=== PATIENT | male | born 1950 | race Caucasian/White ===

== ENCOUNTER 2017-09-10 10:30 | Emergency (ER) | payer MEDICARE, BC ==
[~2017-09-10] VITALS: Ht 175.3 cm; Wt 72.7 kg
[2017-09-10 10:32] VITALS: TEMP 97
[2017-09-10 12:05] LABS: BASO % 0.1 % (0.0-2.0); EOS % 0.1 % (0-4.0); GRAN # 5.3 (1.4-6.5); GRAN % 72.6 % (42.2-75.2); LYMPH # 1.4 (1.2-3.4); MEAN CELL VOLUME 86 fl (80.0-100.0); MEAN CORPUSCULAR HEMOGLOBIN 30 pg (27.0-31.0); MEAN CORPUSCULAR HGB CONC 35 g/dl (33.0-37.0); MEAN PLATELET VOLUME 8.9 fl (7.4-10.4); MONO # 0.5 (0.1-0.6); PLATELET COUNT 287 K/mm3 (130-400); RED BLOOD COUNT 5.37 M/mm3 (4.20-5.60); REDCELL DISTRIBUTION WIDTH-CV 11.9 % (11.5-14.5)
[2017-09-10 12:16] LABS: ALANINE AMINOTRANSFERASE 47 U/L (21-72); ALBUMIN 5.2 gm/dL (3.5-5.0); ALKALINE PHOSPHATASE 86 U/L (50-136); ANION GAP 12 mmol/L (7-16); AST,SGOT 34 U/L (15-37); BLOOD UREA NITROGEN 12 mg/dL (9-20); CALCIUM 9.6 mg/dL (8.4-10.2); CARBON DIOXIDE 25 mmol/L (22-30); CHLORIDE 97 mmol/L (98-107); CREATININE, serum 0.73 mg/dL (0.66-1.25); GLUCOSE 102 mg/dL (74-106); LIPASE 76 U/L (23-300); POTASSIUM 4.4 mmol/L (3.4-5.0); SODIUM 134 mmol/L (137-145); TOTAL PROTEIN 8.2 gm/dL (6.4-8.2)
[2017-09-10 12:17] LABS: C-REACTIVE PROTEIN < 0.5 mg/dL (0.0-0.9)
[2017-09-10 12:30] LABS: TROPONIN-I < 0.012 ng/mL (0.000-0.034)
[2017-09-10] MEDS ORDERED: ZOFRAN ODT4 MG PO (14:05)
[2017-09-10 15:06] VITALS: BP 125/76; PULSE 94
== END 2017-09-10 16:10 | disposition home or self-care (01) ==
LOC: COL.ER 10:30
PROVIDERS: Emergency Medicine
DX: J06.9 Acute upper respiratory infection, unspecified (principal); R11.10 Vomiting, unspecified
CPT/HCPCS: J2405; J7030; J7120

== ENCOUNTER 2019-09-12 07:53 | Emergency (ER) | payer MEDICARE, BC ==
[~2019-09-12] VITALS: Ht 175.3 cm; Wt 75.0 kg
[~2019-09-12 07:53] MED LIST: ZOFRAN ODT4 MG PO
[2019-09-12 08:07] VITALS: TEMP 97.4
[2019-09-12] MEDS ORDERED: LIPITOR20 MG PO (08:13)
[2019-09-12] MEDS ORDERED: MICARDIS40 MG PO (08:13)
[2019-09-12] MEDS ORDERED: SINGULAIR 110 MG/TAB PO (08:14)
[2019-09-12] MEDS ORDERED: ZOFRAN 4MG T4 MG/TAB PO (08:14)
[2019-09-12 08:19] LABS: BASO % 0.6 % (0.0-2.0); EOS # 0.1 (0.0-0.7); EOS % 0.7 % (0-4.0); GRAN # 4.3 (1.4-6.5); GRAN % 63.5 % (42.2-75.2); HEMATOCRIT 45.1 % (42.0-52.0); HEMOGLOBIN 15.4 g/dl (13.5-18.0); LYMPH # 1.8 (1.2-3.4); LYMPH % 26.1 % (20.0-51.0); MEAN CELL VOLUME 86 fl (80.0-100.0); MEAN CORPUSCULAR HEMOGLOBIN 30 pg (27.0-31.0); MEAN CORPUSCULAR HGB CONC 34 g/dl (33.0-37.0); MEAN PLATELET VOLUME 8.8 fl (7.4-10.4); MONO # 0.6 (0.1-0.6); MONO % 8.8 % (1.7-9.3); PLATELET COUNT 219 K/mm3 (130-400); RED BLOOD COUNT 5.22 M/mm3 (4.20-5.60); REDCELL DISTRIBUTION WIDTH-CV 11.9 % (11.5-14.5)
[2019-09-12 08:25] LABS: PROTHROMBIN TIME 11.9 SECONDS (9.7-12.8)
[2019-09-12 08:27] LABS: PARTIAL THROMBOPLASTIN TIME 32.3 SECONDS (26.0-37.0)
[2019-09-12 08:30] LABS: ALANINE AMINOTRANSFERASE 26 U/L (21-72); ALBUMIN 4.7 gm/dL (3.5-5.0); ALKALINE PHOSPHATASE 66 U/L (50-136); ANION GAP 9 mmol/L (7-16); AST,SGOT 27 U/L (15-37); BILIRUBIN,TOTAL 1.2 mg/dL (0.0-1.0); BLOOD UREA NITROGEN 11 mg/dL (9-20); CALCIUM 9.5 mg/dL (8.4-10.2); CARBON DIOXIDE 29 mmol/L (22-30); CHLORIDE 96 mmol/L (98-107); CREATININE, serum 0.88 (0.66-1.25); GLUCOSE 103 mg/dL (74-106); POTASSIUM 3.9 mmol/L (3.4-5.0); SODIUM 135 mmol/L (137-145); TOTAL PROTEIN 7.4 gm/dL (6.4-8.2)
[2019-09-12 08:42] LABS: TROPONIN-I < 0.012 ng/mL (0.000-0.035)
[2019-09-12] MEDS ORDERED: BONINE25 MG PO (10:41)
[2019-09-12 10:45] VITALS: BP 140/92; PULSE 62
== END 2019-09-12 10:54 | disposition home or self-care (01) ==
LOC: COL.ER 07:53
PROVIDERS: Family Medicine
DX: H83.02 Labyrinthitis, left ear (principal); I10 Essential (primary) hypertension
CPT/HCPCS: J2405; J7030

== ENCOUNTER → 2020-12-04 | Outpatient (CLI) | payer MEDICARE, BC ==
[~2020-12-04] MED LIST changes: +ADVIL200 MG PO; +AMOXICILLIN 8751 TAB PO; +BONINE25 MG PO; +COLACE 100100 MG/CAP PO; +FLONASEALLERGY NS; +LIPITOR20 MG PO; +MICARDIS40 MG PO; +ONE-A-DAY ESSE1 EACH PO; +PYRIDIUM 100MG100 MG PO; +SENEXON-S 50-81 EACH PO; +SINGULAIR 110 MG/TAB PO; +VTAMINC250TA PO; +ZOFRAN 4MG T4 MG/TAB PO; +ZOFRAN8 MG PO
== END ==
LOC: COL.RAD 10:32
DX: K76.89 Other specified diseases of liver (principal); R31.9 Hematuria, unspecified; Z90.79 Acquired absence of other genital organ(s)
CPT/HCPCS: Q9967

== ENCOUNTER 2020-12-15 12:52 | Day surgery (SDC) | payer MEDICARE, BC ==
[~2020-12-15] VITALS: Ht 175.3 cm; Wt 77.0 kg
[2020-12-15] VITALS (11 sets, daily range): BP systolic 127–149; BP diastolic 68–90; PULSE 63–86; TEMP 97.9
[~2020-12-15 12:52] MED LIST changes: -ADVIL200 MG PO; -AMOXICILLIN 8751 TAB PO; -COLACE 100100 MG/CAP PO; -FLONASEALLERGY NS; -ONE-A-DAY ESSE1 EACH PO; -PYRIDIUM 100MG100 MG PO; -SENEXON-S 50-81 EACH PO; -VTAMINC250TA PO; -ZOFRAN8 MG PO
[2020-12-15] MEDS ORDERED: ADVIL200 MG PO (14:28)
[2020-12-15] MEDS ORDERED: FLONASEALLERGY NS (14:28)
--- NOTE | 2020-12-15 18:59 | NUR ---
Patient received post op. Patient CBI continues at a moderate/fast rate. Output bloody, no clot seen. Patient uncomfortable, but not wanting to take any medication at this time. He did eat dinner, but then became nauseated after he ate. Vss on room air. Scds ble. Ivf per orders. Bedside report to night nurse
--- NOTE | 2020-12-15 19:30 | NUR ---
Resting quietly, CBI ongoing with red bloody urine to bag, VS stable, denies need for pain medication at this time, family at bedside, Updated on plan of care.
--- NOTE | 2020-12-15 20:19 | NUR ---
CBI ongoing, patient c/o bladder pain, Call placed to Dr. Spear substation technician- will come up to see patient, updated patient and family, VS stable.
--- NOTE | 2020-12-15 20:32 | NUR ---
Dr. Spear at bedside- irrigated solis- clots noted, free flowing at this time, NON:D51/2NS @100ml/hr per Dr. Spear, patient tolerated well, updated on plan of care, NPO at this time per Dr. Spear
--- NOTE | 2020-12-15 22:00 | NUR ---
Call placed to Dr. Spear updated on patient- continues with dark red output with clots, Dr. Spear states that he will take him back to surgery for cytoscopy, evacuation of clots and full duration, [facility] House sup, Charge nurse and spouse and patient on plan of care.
[2020-12-16] VITALS (12 sets, daily range): BP systolic 98–127; BP diastolic 60–73; PULSE 65–90; TEMP 97.6–98.4
--- NOTE | 2020-12-16 00:26 | NUR ---
Returned to room, awake, alert, oriented x 4, respirations even and unlabored, VS started at this time, CBI ongoing with clear output to gravity, patient states he feels much better, at bedside, no further c/o at this time.
--- NOTE | 2020-12-16 09:46 | NUR ---
Patient sitting up in chair. His at bedside. He tolerated breakfast. Cbi at a slow rate, pink tinged output. Patient reports slight discomfort at solis insertion. Patient denies yet passing flatus. Colace per orders. Will monitor.
[2020-12-16] MEDS ORDERED: PYRIDIUM 100MG100 MG PO (11:03)
--- NOTE | 2020-12-16 11:45 | NUR ---
Plan is to return home with Juliaan [phone]. Met with patient in room with . Patient reports that they reside in [place]. 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 Patient reports that his PCP is Dr. Voss. RX obtained at [facility] without Difficulty. Other specialist Dr. Demarco. Patient reports indl Action: Educated on services and supports. Declines any services. No concerns identified. NF
--- NOTE | 2020-12-16 14:48 | NUR ---
Patient assisted back to bed. He sat up in chair for lunch and did well. Cbi continues to flow at a very slow rate. pink tinged output. denies pain. remains at bedside. Will monitor.
--- NOTE | 2020-12-16 18:14 | NUR ---
Patient sitting up in chair. Visiting with and daughter. Dinner ordered. Cbi very slow drip. Pale pink output. Will report off to nightnurse
--- NOTE | 2020-12-16 20:02 | NUR ---
Awake, alert, oriented x 4, family at bedside, CBI continues w/o issue, patient w/o complaint at this time, updated on plan of care.
[2020-12-17 00:10] VITALS: BP 120/64; PULSE 67; TEMP 97.6
[2020-12-17 04:00] VITALS: BP 106/61; PULSE 66; TEMP 97.7
[2020-12-17 07:15] VITALS: BP 135/78; PULSE 58; TEMP 97.7
--- NOTE | 2020-12-17 07:31 | NUR ---
Patient primed & pulled this am. Tolerated procedure well. He has voided twice without difficutly. Patient showering. Breakfast ordering. Hopeful for discharge hometoday.
[2020-12-17 11:21] VITALS: BP 119/72; PULSE 72; TEMP 98.2
--- NOTE | 2020-12-17 14:10 | NUR ---
Patient ready for discharge. Dr. Spear rounded. Orders obtained. Patient successfully completed 6 bottle routine without troubles. Patient picked up script for pyridum. All discharge education given. Home med list reviewed. Instucted patient to continues to check his BP at home prior to taking medication. Activity & diet restrictions reviewed. Patient to called to make follow up appt for stent removal friday & knows to call with any questions or concerns. Patient ambulated out with all belongings. His to take him home
== END 2020-12-17 15:10 | disposition home or self-care (01) ==
LOC: SDCO 12:52 → SURG 16:51 → SDCO 12-17 15:10
DX: C67.9 Malignant neoplasm of bladder, unspecified (principal); N13.5 Crossing vessel and stricture of ureter without hydronephrosis; N99.89 Other postprocedural complications and disorders of genitourinary system; R31.0 Gross hematuria; N32.89 Other specified disorders of bladder; I10 Essential (primary) hypertension; E78.5 Hyperlipidemia, unspecified; E78.00 Pure hypercholesterolemia, unspecified; Z90.79 Acquired absence of other genital organ(s); Z79.899 Other long term (current) drug therapy; Z80.42 Family history of malignant neoplasm of prostate; Z80.59 Family history of malignant neoplasm of other urinary tract organ
CPT/HCPCS: OP; C1769; C2617; J0330; J0690; J1100; J1885; J2270; J2405; J2704; J3010; J3480; J7120; Q9967

== ENCOUNTER 2021-01-19 06:19 | Day surgery (SDC) | payer MEDICARE, BC ==
[~2021-01-19] VITALS: Ht 175.3 cm; Wt 75.7 kg
[2021-01-19] VITALS (11 sets, daily range): BP systolic 123–149; BP diastolic 77–88; PULSE 60–79; TEMP 97.3–98.2
[~2021-01-19 06:19] MED LIST changes: +ADVIL200 MG PO; +FLONASEALLERGY NS; +PYRIDIUM 100MG100 MG PO
[2021-01-19] MEDS ORDERED: COLACE 100100 MG/CAP PO (09:03)
--- NOTE | 2021-01-19 10:25 | NUR ---
PATIENT ADMITED INTO ROOM 349 POST OP. A&O. VSS. DENIES PAIN OR NAUSEA. CBI INFUSING AT MOD RATE. BAEZ TO DD WITH CLEAR YELLOW URINE NOTED. IV FLUIDS INFUSING INTO RIGHT WRIST IV. LIQUIDS AT BEDSIDE. HEAD TO TOE ASSESSMENT COMPLETE. ORIENTED TO ROOM. CALL LIGHT IN REACH. FAMILY AT BEDSIDE.
--- NOTE | 2021-01-19 13:11 | NUR ---
Pt. is comfortable and not hungry so will wait;wanting just ice water for now.
--- NOTE | 2021-01-19 21:00 | NUR ---
PT IN BED, HAS CBI AT MODERATE RATE AND URINE IS PEACH COLORED WITHOUT CLOTS. IS ALERT AND ORIENTED X4. DENIES PAIN. TAKES HS MED WITHOUT PROBLEM.
[2021-01-20 00:40] VITALS: BP 117/81; PULSE 73; TEMP 98.1
[2021-01-20 04:44] VITALS: BP 136/79; PULSE 65; TEMP 97.8
--- NOTE | 2021-01-20 06:00 | NUR ---
URINE REMAINS PEACH COLORED, NO CLOTS. CBI AT SLOW RATE.
[2021-01-20 08:00] VITALS: BP 144/88; PULSE 63; TEMP 97.9
[2021-01-20 12:00] VITALS: BP 142/89; PULSE 66; TEMP 98
--- NOTE | 2021-01-20 15:00 | NUR ---
PATIENT HAS COMPLETED HIS 6 CUP. URINE IS PEACH COLORED AND WITHOUT CLOTS. PATIENT DISCHARGING HOME VIA AMBULATORY WITH TO PERSONAL VEHICLE. GAVE DISCHARGE INSTRUCTIONS AND DISCUSSED F/U APT. ANSWERED QUESTIONS/CONCERNS. DC'D RIGHT WRIST IV, COVERED SITE WITH GAUZE & TAPE. PATIENT IS DRESSED, PACKED AND DISCHARGED.
== END 2021-01-20 15:00 | disposition home or self-care (01) ==
LOC: SDCO 06:19 → SURG 10:25 → SDCO 12:30
DX: C67.0 Malignant neoplasm of trigone of bladder (principal); Z20.822 Contact with and (suspected) exposure to COVID-19; I10 Essential (primary) hypertension; E78.00 Pure hypercholesterolemia, unspecified; Z85.46 Personal history of malignant neoplasm of prostate; Z79.899 Other long term (current) drug therapy; Z87.891 Personal history of nicotine dependence
CPT/HCPCS: OP; C1769; C2617; J0690; J1100; J2405; J2704; J3010; J7120

== ENCOUNTER 2021-02-10 08:44 | Observation (INO) | payer MEDICARE, BC ==
[2021-02-10] VITALS (12 sets, daily range): BP systolic 106–158; BP diastolic 47–884; PULSE 62–95; TEMP 97.5–98.8
[~2021-02-10 08:44] MED LIST changes: +COLACE 100100 MG/CAP PO
--- NOTE | 2021-02-10 10:13 | NUR ---
Patient admitted to the surgical floor for CBI. Upon initial assessment normal S1 and S2 sound present, radial and pedal pulses +2 bilaterally, lungs clear to auscultation, bowel sounds present in all four quadrants, patient A&O. Patient C/O discomfort in their lower abdomen. 22 gauge IV started in patient's left AC. Patient denies any further pain, discomfort, or needs at this time. Will continue to monitor. Call light in reach.
--- NOTE | 2021-02-10 10:17 | NUR ---
Admission paperwork complete. Med rec, allergies, and pharmacy updated.
--- NOTE | 2021-02-10 14:17 | NUR ---
Patient taken down for procedure.
--- NOTE | 2021-02-10 18:10 | NUR ---
Patient has had an ok day. CBI placed by Beatris. [address] in [address]. Patient has had clear liquid coming out of solis since his arrival to the floor, no clots present. Solis clamped. VSS. Patient tolerating food and drink, diet advanced to a regular diet. Patient denies any pain, discomfort, or needs at time. at the bedside. Will continue to monitor. Call light in reach.
--- NOTE | 2021-02-10 21:00 | NUR ---
PT IN BED. CBI CLAMPED AND URINE IS CLEAR YELLOW. SL TO LEFT AC FLUSHES WELL. DENIES PAIN. BAEZ CARES COMPLETE.
[2021-02-11 03:15] VITALS: BP 137/79; PULSE 63; TEMP 97.9
--- NOTE | 2021-02-11 04:51 | NUR ---
PT AWAKE, EMPTIED BAEZ FOR 2200CC, CBI HAS BEEN CLAMPED THIS SHIFT, REMAMINS CLEAR YELLOW.
[2021-02-11 07:59] VITALS: BP 143/87; PULSE 69; TEMP 98
--- NOTE | 2021-02-11 08:00 | NUR ---
PATIENT IS A&O. VSS. DENIES PAIN. IN EARLY THIS AM, SEE ORDERS. BAEZ TO DD WITH MOD AMOUNTS OF CLEAR YELLOW URINE. P&P CATH, INSTILLED 30CC OF CBI FLUID AND PULLED BAEZ. PATIENT TOLERATED WELL. STARTED 6 CUP ROUTINE. URINAL AT BEDSIDE. HEAD TO TOE ASSESSMENT COMPLETE. AM MEDS GIVEN. NO C/O N/V. LEFT AC IV TO INT. BREAKFAST TRAY AT BEDSIDE. NO OTHER NEEDS. CALL LIGHT IN REACH. NOW AT BEDSIDE.
--- NOTE | 2021-02-11 09:35 | NUR ---
PATIENT WAS ABLE TO VOID 150CC OF CLEAR YELLOW URINE FOR HIS FIRST VOID POST BAEZ REMOVAL.
--- NOTE | 2021-02-11 09:54 | NUR ---
ELLEN completed intake with patient. Patient provides that he lives in [place] with spouse Juliana [phone]. Patient states that he does not utilize DME and is independent with ADLs, and does not utilize any home health services at this time. Patient states that his PCP is Dr. Hennessy, pharmacy is [facility], and is able to afford his medications. patient states that his is his DPOA-HC and present at time of intake and states that she will bring in a copy as soon as she can. Patient states that his DC plan is to return to his home up on [place]. SW will continue to follow. DC plan: Home with spouse
[2021-02-11 11:40] VITALS: BP 157/80; PULSE 62; TEMP 97.8
--- NOTE | 2021-02-11 14:00 | NUR ---
PATIENT HAS COMPLETED HIS 6 CUP ROUTINE AND IS READY TO DISCHARGE HOME. GAVE DISCHARGE INSTRUCTIONS & DISCUSSED F/U APT. DC'D LEFT AC IV, COVERED WITH GAUZE & COBAN. PATIENT IS DRESSED, PACKED AND DISCHARGED.
== END 2021-02-11 14:00 | disposition home or self-care (01) ==
LOC: SURG 08:44
PROVIDERS: ADMIT Urology
DX: C67.4 Malignant neoplasm of posterior wall of bladder (principal); R31.0 Gross hematuria; N32.9 Bladder disorder, unspecified; E78.00 Pure hypercholesterolemia, unspecified; E78.5 Hyperlipidemia, unspecified; I10 Essential (primary) hypertension; Z85.46 Personal history of malignant neoplasm of prostate; Z79.899 Other long term (current) drug therapy
CPT/HCPCS: G0378; G0379; J0690; J1100; J2405; J2704; J3010

== ENCOUNTER 2021-05-22 14:03 | Observation (INO) | payer MEDICARE, BC ==
[~2021-05-22] VITALS: Ht 175.3 cm; Wt 77.0 kg
[2021-05-22 14:47] VITALS: BP 128/86; PULSE 75; TEMP 97.5
[2021-05-22] MEDS ORDERED: SENEXON-S 50-81 EACH PO (15:29)
[2021-05-22] MEDS ORDERED: ZOFRAN 4MG T4 MG/TAB PO (15:29)
[2021-05-22] MEDS ORDERED: ONE-A-DAY ESSE1 EACH PO (15:30)
[2021-05-22] MEDS ORDERED: VTAMINC250TA PO (15:31)
[2021-05-22] MEDS ORDERED: PYRIDIUM 100MG100 MG PO (18:20)
[2021-05-22 20:44] VITALS: BP 143/92; PULSE 86; TEMP 97.8
[2021-05-22 21:44] VITALS: BP 138/86; PULSE 82
[2021-05-23] VITALS (7 sets, daily range): BP systolic 122–134; BP diastolic 67–77; PULSE 71–98; TEMP 98–98.8
--- NOTE | 2021-05-23 00:41 | NUR ---
2100- TO FLOOR FROM POST OP W CBI RUNNING MED/HIGH FLOW. NO CLOTS CLEAR URINE. FAMILY AT BEDSIDE. POC DISCUSSED. TOLERATING FLUIDS NOW. IV FLUIDS PER ORDER. SCD FOR VTE. POST OP VITALS CYCLING. CALL LIGHT WI REACH.
[2021-05-23 06:38] LABS: HEMATOCRIT 38.7 % (42.0-52.0); MEAN CELL VOLUME 86 fl (80.0-100.0); MEAN CORPUSCULAR HEMOGLOBIN 29 pg (27.0-31.0); MEAN CORPUSCULAR HGB CONC 34 g/dl (33.0-37.0); PLATELET COUNT 226 K/mm3 (130-400); RED BLOOD COUNT 4.51 M/mm3 (4.20-5.60); REDCELL DISTRIBUTION WIDTH-CV 12.9 % (11.5-14.5)
[2021-05-23 07:05] LABS: CALCIUM 8.7 mg/dL (8.4-10.2); CREATININE, serum 0.8 mg/dL (0.72-1.25); POTASSIUM 4.3 mmol/L (3.5-4.5)
--- NOTE | 2021-05-23 08:45 | NUR ---
Pt doing well this morning. He does not have much of an appetite, only wanting liquids at this time. He is tolerating liquids with no complaints of N/V. Pt is aware of the plan for the day as far as the mitomycin and having the solis catheter removed. All questions answered
--- NOTE | 2021-05-23 10:55 | NUR ---
Mitomycin recieved from the pharmacy and verified correct with Kandy Hauser RN by comparing computer order with printed label. Pt teaching has beend one and printed information provided. CBI clamped. Bladder drained of clear urine with very slight pink tint. Delaney catheter clamped and secured, port prepped with alcohol and mitomycin instilled into bladder with no discomfort reported. Chux has been placed under pt and appropriate PPE and observation of chemotherapy precautions was followed. Signage is in place and precautions have been reviewed.
--- NOTE | 2021-05-23 11:20 | NUR ---
Pt is on his back right now and is tolerating the clamped solis well at this time. Family is at bedside and is supportive.
--- NOTE | 2021-05-23 11:45 | NUR ---
Roc, RN has been caring for pt during mitomycin. Pt currently doing well, no needs or complaints
--- NOTE | 2021-05-23 12:04 | NUR ---
Mitomycin was instilled at 1045 and at 1145 pt states he is done and requests that his bladder be drained. Rosa urine was noted with a brighter red color for the last 50 ml but no clots. CBI was restarted briefly. Solis catheter balloon was drained and solis was gently and easily removed. Pericare provided and stat lock was removed as well all following chemotherapy PPE precautions. Approximately 300ml of urine was drained and disposed of into yellow container along with PPE waste. Report to Kandy Hauser RN who is his primary nurse. Lunch has been ordered.
--- NOTE | 2021-05-23 15:53 | NUR ---
ELLEN met with patient and his , Juliana, at bedside to discuss discharge plan. Juliana's contact # is [phone]. Patient and reside in [place] where patient reports he is fully independent with no DME's or home oxygen needs. Patient states his PCP is Dr. Boaz Hennessy and he gets his medications from [facility] with no difficulty. Patient has a completed MPOA and it is on file. SW will continue to follow for any discharge needs. *D/C Plan: Home with
--- NOTE | 2021-05-23 15:56 | NUR ---
Pt has had complaints of his stomach hurting, thought it was gas, but pains are getting worse after walking and passing some gas. PRN nausea medication given. Pt reports feeling bloated and is concerned that he is not voiding much. Notified Dr Gerardo
[2021-05-24] VITALS (7 sets, daily range): BP systolic 108–131; BP diastolic 58–75; PULSE 77–92; TEMP 98.1–98.7
--- NOTE | 2021-05-24 00:30 | NUR ---
PT HAS CONTINUED TO HAVE ABDOMINAL PAIN ET NAUSEA THROUGHOUT NIGHT. REFUSED PO MEDICATIONS R/T FEAR OF VOMITTING, HAS BEEN DRINKING WATER WITH NO PROBLEMS. BOWEL SOUNDS ARE ACTIVE. URINE IS RED TINGED BUT NO CLOTS SEEN. NEW TELEPHONE ORDER RECEIVED FROM DR. PAUL TO INSERT [address] BAEZ CATHETER. BAEZ CATHETER HAS BEEN INSERTED @ THIS TIME, IMMEDIATE URINE RETURN WAS RED TINGED WITH VISIBLE MODERATE SIZED CLOTS. PT IS RESTING IN BED. RESPIRATIONS UNLABORED, CALL LIGHT WITHIN REACH. WILL CONTINUE TO MONITOR.
--- NOTE | 2021-05-24 03:42 | NUR ---
PT IS RESTING IN BED. REQUESTS NAUSEA MEDICATION. PT STATES THAT NAUSEA ET PAIN HAS IMPROVED FROM EARLIER. URINE IN TUBING IS NOW LIGHT PEACH WITH NO CLOTS SEEN. BAG IS EMPTIED OF 800 ML. SMALL AMOUNT OF MEDIUM SIZED CLOTS ARE ALSO EMPTIED FROM BAG. PT'S WATER IS REFILLED, DENIES OTHER NEEDS @ THIS TIME. CALL LIGHT WITHIN REACH.
[2021-05-24] MEDS ORDERED: AMOXICILLIN 8751 TAB PO (06:13)
[2021-05-24] MEDS ORDERED: ZOFRAN8 MG PO (06:13)
--- NOTE | 2021-05-24 10:12 | NUR ---
PT HAS SOME NAUSEA, ADMINISTERED SOME ZOFRAN PER MAR. PT WOULD LIKE TO ADJUST TO ZOFRAN ODT FOR HOME MANAGEMENT. WILL CONTACT PROVIDER.
--- NOTE | 2021-05-24 13:14 | NUR ---
First visit from the engine cleaner. No needs right now.
--- NOTE | 2021-05-24 20:00 | NUR ---
PT IN BED. DENIES NAUSEA. HAS GOOD URINE OUTPUT FROM BAEZ, NO CBI. BAEZ CARES PROVIDED AT THIS TIME.
[2021-05-25 03:24] VITALS: BP 109/73; PULSE 83; TEMP 98.1
--- NOTE | 2021-05-25 05:00 | NUR ---
Has denied nausea this shift. Delaney with good urine output.
[2021-05-25 07:16] VITALS: BP 107/74; PULSE 85; TEMP 98.1
--- NOTE | 2021-05-25 10:21 | NUR ---
Pt resting in bed at this time with some complaints of nausea. PRN given. Pts is present in the room. Discussed catheter care for at home. Will continue to go over until he goes home. Pt was able to eat some breakfast and walk around in the room prior to him getting nauseated. Pt is okay going home knowing that a script for yvrose was called in. No other needs at this time
--- NOTE | 2021-05-25 10:22 | NUR ---
Heart sounds regular, lungs clear to ausculation, bowels hyperactive x4, solis dependent to drainage. Medication administered for nausea. Patient ambulating independent in room, at bedside.
[2021-05-25 12:09] VITALS: BP 104/72; PULSE 80; TEMP 98.2
[2021-05-25 14:17] LABS: BASO # 0.1 K/mm3 (0.0-0.2); BASO % 0.5 % (0.0-2.0); EOS # 0.1 K/mm3 (0.0-0.7); EOS % 1.1 % (0-4.0); GRAN # 7.3 K/mm3 (1.4-6.5); GRAN % 69.6 % (42.2-75.2); HEMATOCRIT 38.9 % (42.0-52.0); HEMOGLOBIN 13.2 g/dl (13.5-18.0); LYMPH # 1.8 K/mm3 (1.2-3.4); MEAN CELL VOLUME 85 fl (80.0-100.0); MEAN CORPUSCULAR HEMOGLOBIN 29 pg (27.0-31.0); MEAN CORPUSCULAR HGB CONC 34 g/dl (33.0-37.0); MEAN PLATELET VOLUME 8.6 fl (7.4-10.4); MONO # 1.2 K/mm3 (0.1-0.6); MONO % 11.4 % (1.7-9.3); PLATELET COUNT 222 K/mm3 (130-400); RED BLOOD COUNT 4.56 M/mm3 (4.20-5.60); REDCELL DISTRIBUTION WIDTH-CV 12.7 % (11.5-14.5)
[2021-05-25 14:39] LABS: CALCIUM 9.3 mg/dL (8.4-10.2); CREATININE, serum 0.83 mg/dL (0.72-1.25)
--- NOTE | 2021-05-25 15:16 | NUR ---
Updated Dr Arceo on patient. Pt doing much better. He was able to eat a decent amount for late lunch. States that this is the best he has felt. He has been up walking again. Reviewed leg bag teaching and catheter care with pt and his . Reviewed discharge instructions to include follow up appointment and prescriptions.
== END 2021-05-25 15:29 | disposition home or self-care (01) ==
LOC: SDCO 14:03 → SURG 21:00 → SDCO 05-23 09:24 → SURG 05-23 09:25
PROVIDERS: Urology; ADMIT Urology
DX: C67.4 Malignant neoplasm of posterior wall of bladder (principal); E78.00 Pure hypercholesterolemia, unspecified; I10 Essential (primary) hypertension; R42 Dizziness and giddiness; E78.5 Hyperlipidemia, unspecified; Z85.46 Personal history of malignant neoplasm of prostate; Z90.79 Acquired absence of other genital organ(s); Z79.899 Other long term (current) drug therapy; Z79.84 Long term (current) use of oral hypoglycemic drugs
CPT/HCPCS: OP; G0378; J0690; J1170; J2175; J2405; J2550; J2704; J3010; J3480; J9280; Q9967

== ENCOUNTER 2021-06-08 08:26 | Inpatient (IN) | payer MEDICARE, BC ==
[~2021-06-08] VITALS: Ht 175.3 cm; Wt 74.2 kg
[~2021-06-08 08:26] MED LIST changes: +AMOXICILLIN 8751 TAB PO; +ONE-A-DAY ESSE1 EACH PO; +SENEXON-S 50-81 EACH PO; +VTAMINC250TA PO; +ZOFRAN8 MG PO
[2021-06-27 08:09] LABS: HEMOGLOBIN 13.5 g/dl (13.5-18.0); MEAN CELL VOLUME 86 fl (80.0-100.0); MEAN CORPUSCULAR HEMOGLOBIN 29 pg (27.0-31.0); MEAN CORPUSCULAR HGB CONC 34 g/dl (33.0-37.0); MEAN PLATELET VOLUME 8.4 fl (7.4-10.4); PLATELET COUNT 288 K/mm3 (130-400); RED BLOOD COUNT 4.63 M/mm3 (4.20-5.60); REDCELL DISTRIBUTION WIDTH-CV 12.7 % (11.5-14.5)
[2021-06-27 08:25] LABS: ALBUMIN 3.9 gm/dL (3.4-4.8); BILIRUBIN,TOTAL 0.5 mg/dL (0.2-1.2); CALCIUM 10.2 mg/dL (8.4-10.2); CREATININE, serum 0.91 mg/dL (0.72-1.25); POTASSIUM 4.2 mmol/L (3.5-4.5); TOTAL PROTEIN 7.2 gm/dL (6.2-8.1)
[2021-06-28] VITALS (10 sets, daily range): BP systolic 127–138; BP diastolic 64–76; PULSE 84–100; TEMP 97.8–98.3
[2021-06-28] MEDS ORDERED: COLACE 100100 MG/CAP PO (06:38)
[2021-06-28] MEDS ORDERED: SENOKOT S 50 MG1 TAB PO (06:40)
[2021-06-28 12:23] LABS: HEMOGLOBIN 12.3 g/dl (13.5-18.0); MEAN CELL VOLUME 86 fl (80.0-100.0); MEAN CORPUSCULAR HEMOGLOBIN 30 pg (27.0-31.0); MEAN CORPUSCULAR HGB CONC 35 g/dl (33.0-37.0); MEAN PLATELET VOLUME 8.2 fl (7.4-10.4); PLATELET COUNT 256 K/mm3 (130-400); RED BLOOD COUNT 4.16 M/mm3 (4.20-5.60); REDCELL DISTRIBUTION WIDTH-CV 12.7 % (11.5-14.5)
[2021-06-28 12:28] LABS: HEMATOCRIT 35.7 % (42.0-52.0)
[2021-06-28 12:40] LABS: CALCIUM 8.3 mg/dL (8.4-10.2); CREATININE, serum 0.85 mg/dL (0.72-1.25); POTASSIUM 3.9 mmol/L (3.5-4.5)
[2021-06-28 12:53] LABS: BAND 3 % (0-10); LYMPHOCYTE 2 % (20.0-51.0); NEUTROPHILS 92 % (42.0-75.2); PLATELET ESTIMATE NORMAL (NORMAL)
[2021-06-28] MEDS ORDERED: VTAMINC250TA PO (15:38)
--- NOTE | 2021-06-28 17:50 | NUR ---
Patient alert and oriented, answers questions appropriately. See assessment. Midline abdomen incision with dressing CDI. MATT drain LLQ with moderate amount of serosanguinous drainage noted, emptied and compressed. Urostomy site to RLQ red and protruding, stents x2 and red jodi catheter protruding from urostomy site. Urostomy bag connected to solis catheter bag. Indwelling solis catheter in place to dependent drainage, bloody urine noted. ERAS protocol reviewed with patient. C/o nausea throughout the day. has taken dressings off of abdomen, replaced. has also several times been noted to be manipulating urostomy bag and solis/stents. Reviewed with spouse to allow nursing staff to provide care and risk for infection. No c/o at this time.
--- NOTE | 2021-06-28 18:30 | NUR ---
Phylicia, Hospitalist MUSA notified of consult.
[2021-06-29 00:43] VITALS: BP 129/84; PULSE 86; TEMP 98.4
--- NOTE | 2021-06-29 02:44 | NUR ---
PT SLEEPING @ THIS TIME, LIGHTLY SNORING. PT HAS HAD FREQUENT NAUSEA ET ABDOMINAL PAIN THROUGHOUT NIGHT. MORPHINE IV ADMINISTERED FOR PAIN, PHENERGAN ET ZOFRAN IV ADMINISTERED FOR NAUSEA. PT STATES THAT ZOFRAN DOES NOT SEEM TO HELP WITH NAUSEA. IVF INFUSING. URINE FROM RIGHT UROSTOMY IS GIL ET CLEAR. MATT DRAIN WITH COMPRESSION HAS HAD MODERATE AMOUNTS OF DARK RED DRAINAGE. BAEZ CATHETER IS DRAINING SCANT AMOUNTS OF DARK RED DRAINAGE. DRESSING OVER MIDLINE INCISION IS CDI. RESPIRATIONS UNLABORED. IVF INFUSING. CALL LIGHT WITHIN REACH.
[2021-06-29 04:54] VITALS: BP 123/74; PULSE 81; TEMP 98
--- NOTE | 2021-06-29 06:10 | NUR ---
PT STATES THAT HE IS FEELING BETTER THIS MORNING ET THAT HE WOULD LIKE TO STAY CAUGHT UP WITH HIS PAIN MEDICATION. PT DENIES NAUSEA BUT DOESN'T FEEL LIKE HE IS READY FOR PO MEDICATIONS YET, SIPS SLOWLY ON WATER, REFUSES SCHEDULED TYLENOL ET ROXICODONE. MORPHINE IV ADMINISTERED. IVF INFUSING. PT IS GIVEN A FEW CRACKERS ET SOME JELLO AFTER STATING THAT HE WOULD LIKE TO TRY EATING SOME FOOD SLOWLY. DENIES OTHER NEEDS. RESPIRATIONS UNLABORED. CALL LIGHT WITHIN REACH.
[2021-06-29 06:46] LABS: BASO % 0.2 % (0.0-2.0); GRAN # 8.5 K/mm3 (1.4-6.5); GRAN % 76.4 % (42.2-75.2); HEMOGLOBIN 11.3 g/dl (13.5-18.0); LYMPH # 1.4 K/mm3 (1.2-3.4); LYMPH % 12.1 % (20.0-51.0); MEAN CELL VOLUME 88 fl (80.0-100.0); MEAN CORPUSCULAR HEMOGLOBIN 29 pg (27.0-31.0); MEAN CORPUSCULAR HGB CONC 33 g/dl (33.0-37.0); MEAN PLATELET VOLUME 8.7 fl (7.4-10.4); MONO # 1.2 K/mm3 (0.1-0.6); MONO % 10.9 % (1.7-9.3); PLATELET COUNT 282 K/mm3 (130-400); RED BLOOD COUNT 3.89 M/mm3 (4.20-5.60); REDCELL DISTRIBUTION WIDTH-CV 12.9 % (11.5-14.5)
[2021-06-29 06:49] LABS: HEMATOCRIT 34.2 % (42.0-52.0)
[2021-06-29 07:02] LABS: CALCIUM 9.1 mg/dL (8.4-10.2); CREATININE, serum 0.77 mg/dL (0.72-1.25); POTASSIUM 4.5 mmol/L (3.5-4.5)
[2021-06-29 08:51] VITALS: BP 122/71; PULSE 76; TEMP 97.9
--- NOTE | 2021-06-29 09:22 | NUR ---
Patient resting in bed. rounded this am. Stents were flushed with 3 mls each. Patient provided with ostomy cares as well. New appliance applied with teaching given, patient has seen ostomy nurse in [facility] and was already fairly knowledagble. His now at bedside. Patient reports pain and nausea. Medications given, patient not wanting to take po medication at this time. We reviewed plan of care & importance of using IS today and increasing activity. Patient provided with ice water & he did not want any other clear liquids yet. Scds ble. Hema drain to bulb suction. Delaney removed per orders. Will monitor closely.
--- NOTE | 2021-06-29 11:30 | NUR ---
Patient out of bed. Stood at bedside. Sat up in chair for awhile, but was uncomfortable. encouarged him to sit up for awhile. He used IS and coughed and deep breathed. teeth brushed. Will monitor.
[2021-06-29 11:50] VITALS: BP 117/71; PULSE 81; TEMP 98
--- NOTE | 2021-06-29 12:29 | NUR ---
Stator Winder met with patient to discuss discharge planning. Patient's , Juliana (ph#[phone]) and daughter, Kiki are at bedside. Patient lives in [place] with his and sees Dr. Hennessy for primary care. Patient obtains medications from [facility] with no difficulties and does not use any DME at home. Patient is independent with ADLS and plans to return home upon discharge. Patient has Advance Directives in EMR which designate his as DPOA-HC. Discharge Plan: Home
--- NOTE | 2021-06-29 14:10 | NUR ---
Initial visit; Patient resting, [employer] Senior Specialist spoke with patient's , [employer] Senior Specialist gave her a card so that she could let the patient know of the availability of a [employer] Senior Specialist at [facility]. She said that he would probably like to visit with [employer] Senior Specialist when he was feeling a little better and thanked [employer] Senior Specialist for stopping.
--- NOTE | 2021-06-29 14:49 | NUR ---
Patient resting in bed. He reports nausea & pain has returned. Medication per orders. Discussed with patient the importance of continuing with activty & is use today. He is agreeable to get out of bed once medications start working.
[2021-06-29 15:20] VITALS: BP 126/77; PULSE 83; TEMP 98.1
--- NOTE | 2021-06-29 16:14 | NUR ---
Patient up and ambulated hallways, he did well. steady on his feet with gait belt. MATT drain to compression. midline incisions gauze dressing CDI. Urostomy appliace intact. Urine output red tinged. Stoma protruding with redness. Ivf. He contineus to have minimal appetite. Tolerates ice & water. Supportive at bedside. Will monitor.
--- NOTE | 2021-06-29 17:49 | NUR ---
Patient reaports elevated nausea again. Prn Phenergan given, explained to patient that this is a stronger medication, he is hoping he will be able to rest. No interest in clears. Hema drain to compression. Urostomy to DD.Dressing Cdi. Will report off to nightnurse
[2021-06-29 19:28] VITALS: BP 132/82; PULSE 93; TEMP 98
[2021-06-30 00:19] VITALS: BP 130/79; PULSE 79; TEMP 98
[2021-06-30 03:14] VITALS: BP 134/71; PULSE 79; TEMP 98.1
--- NOTE | 2021-06-30 05:44 | NUR ---
pt reported nausea all shift, zofran given x1 and phenergan x1, morphine controlling pain. refuses po tylenol d/t nausea. only taking ice chips po, IVF infusing per piv @75cc/hr. MATT drain with reddish-brown drainage, urostomy draining peach colored urine with streaks of blood, flushed urethral stents with 3cc sterile saline each. abd dressing CDI
[2021-06-30 06:52] LABS: BASO % 0.2 % (0.0-2.0); EOS % 0.1 % (0-4.0); GRAN # 11.3 K/mm3 (1.4-6.5); GRAN % 84.7 % (42.2-75.2); HEMOGLOBIN 11.8 g/dl (13.5-18.0); LYMPH # 0.9 K/mm3 (1.2-3.4); LYMPH % 6.6 % (20.0-51.0); MEAN CELL VOLUME 89 fl (80.0-100.0); MEAN CORPUSCULAR HEMOGLOBIN 29 pg (27.0-31.0); MEAN CORPUSCULAR HGB CONC 33 g/dl (33.0-37.0); MEAN PLATELET VOLUME 8.9 fl (7.4-10.4); MONO # 1.1 K/mm3 (0.1-0.6); MONO % 7.9 % (1.7-9.3); PLATELET COUNT 263 K/mm3 (130-400); RED BLOOD COUNT 4.01 M/mm3 (4.20-5.60); REDCELL DISTRIBUTION WIDTH-CV 12.9 % (11.5-14.5)
[2021-06-30 07:01] LABS: HEMATOCRIT 35.7 % (42.0-52.0)
[2021-06-30 07:27] LABS: CALCIUM 8.3 mg/dL (8.4-10.2); CREATININE, serum 0.7 mg/dL (0.72-1.25); POTASSIUM 4.4 mmol/L (3.5-4.5)
[2021-06-30 07:30] VITALS: BP 151/82; PULSE 95; TEMP 97.8
--- NOTE | 2021-06-30 08:50 | NUR ---
rounded. Orders obtained & plan of care reviewed. Patient at bedside.
--- NOTE | 2021-06-30 09:15 | NUR ---
hospitalist rounded & orders obtained
--- NOTE | 2021-06-30 10:00 | NUR ---
rounded & made him aware hospitalist rounded. We reviewed orders and new orders obtained.
--- NOTE | 2021-06-30 10:15 | NUR ---
16F NG tube inserted to left nares. Patient tolerated very well. No gastric content obtained. xray ordered for placement.
--- NOTE | 2021-06-30 10:50 | NUR ---
Patient resting in bed. His family at bedside. Patient medicated for pain & nausea per orders. Protonix for complaints of reflex. Patient offered a walk, but he is wanting to rest at this time. Patient abdomen, more distended today. Denies passing flatus. Ureteal stents flushed with 3mls NS per orders. ostomy appliace intact. urine output adequate. Hema drain to compression. Scds ble. Will monitor.
[2021-06-30 11:43] VITALS: BP 125/81; PULSE 96; TEMP 98.4
--- NOTE | 2021-06-30 12:31 | NUR ---
design technician at bedside to obtained xray.
--- NOTE | 2021-06-30 13:43 | NUR ---
Patient resting in bed now. Patient was up we ambulated to the hallway. He stood at sink & brushed his teeth & shaved. He marched in place at bedside. Patient denies passing flatus, but thought it may be coming. Patient reports belching & hiccups still. He reports reflex improved. Patient and his were given urostomy teaching. Both were very unserstanding & deny questions or concerns. Stoma remains red, mucus present. Skin intact beneath. Will let him rest & continue to montior closely.
--- NOTE | 2021-06-30 15:42 | NUR ---
Patient resting in bed. He reports feeling better. He is able to rest. Nausea improved since NG tube placement. Patient has had no output from NG, but abdomen is softer & less distended. Overall his mood and spirits are much better. Will monitor
[2021-06-30 16:21] VITALS: BP 132/81; PULSE 90; TEMP 98.2
--- NOTE | 2021-06-30 18:51 | NUR ---
Patient up and ambulated around the room again & did well. Pain rating 5/10. He reports slightly elevated. Morphine & zofran PRN given. He continues to overall feel better. He is hoping to be able to get a good nights rest tonight and was wanting medication prior to going to sleep. Ng tube remains to LIS with no output. MATT drain to compression. Urostomy to DD with adequate oputput. Bedside report to Brianda JONES
[2021-06-30 19:26] VITALS: BP 130/71; PULSE 79; TEMP 97.8
[2021-07-01] VITALS (7 sets, daily range): BP systolic 120–139; BP diastolic 61–78; PULSE 76–90; TEMP 97.7–98.2
--- NOTE | 2021-07-01 06:45 | NUR ---
Report received from KAREN Lamar. Patient is resting comfortably in bed. Call light and bedside table are within reach. Will continue to monitor patient throughout shift.
[2021-07-01 07:06] LABS: BASO % 0.2 % (0.0-2.0); EOS # 0.1 K/mm3 (0.0-0.7); EOS % 0.5 % (0-4.0); GRAN # 12.7 K/mm3 (1.4-6.5); GRAN % 86.6 % (42.2-75.2); HEMOGLOBIN 11.1 g/dl (13.5-18.0); LYMPH % 6.5 % (20.0-51.0); MEAN CELL VOLUME 92 fl (80.0-100.0); MEAN CORPUSCULAR HEMOGLOBIN 29 pg (27.0-31.0); MEAN CORPUSCULAR HGB CONC 32 g/dl (33.0-37.0); MEAN PLATELET VOLUME 8.7 fl (7.4-10.4); MONO # 0.8 K/mm3 (0.1-0.6); MONO % 5.7 % (1.7-9.3); PLATELET COUNT 273 K/mm3 (130-400); RED BLOOD COUNT 3.78 M/mm3 (4.20-5.60); REDCELL DISTRIBUTION WIDTH-CV 12.7 % (11.5-14.5)
[2021-07-01 07:13] LABS: HEMATOCRIT 34.6 % (42.0-52.0)
[2021-07-01 07:14] LABS: CALCIUM 8.8 mg/dL (8.4-10.2); CREATININE, serum 0.71 mg/dL (0.72-1.25); POTASSIUM 4.1 mmol/L (3.5-4.5)
--- NOTE | 2021-07-01 07:28 | NUR ---
pt slept well this shift, no pain meds requested, no reported nausea since NG placed. 125 cc brown liquid out of NG, remains secure in left nare at 60cm omar, IVF @75cc/hr, NPO.
--- NOTE | 2021-07-01 09:37 | NUR ---
This nurse was instructed by Dr. Spear to hold all PO medications.
--- NOTE | 2021-07-01 15:40 | NUR ---
Patient c/o increased pain over stoma and requested pain medication. Pn level is 6/10. This nurse gave morphine because patient refused to take a pain medication PO. This nurse got patient up to walk him and he stated he did not think he could walk too far d/t being nausea. This nurse gave Zofran. Will continue to monitor patient throughout shift.
--- NOTE | 2021-07-01 20:30 | NUR ---
PT RESTING IN BED. ILEOCONDUIT PATENT . STENTS X2 AND RED ARYAN CATHETER NOTED FROM ILEOCONDUIT WITH YELLOW RETURN. NG LIS WITH LT GREEN RETURN IN SMALL AMTS. PT DENIES NEED FOR PAIN MED. CALL LIGHT IN REACH. BED ALARM SET.
[2021-07-02 03:52] VITALS: BP 127/70; PULSE 88; TEMP 97.6
--- NOTE | 2021-07-02 06:07 | NUR ---
PT REPORTS PASSING GAS THIS AM.
[2021-07-02 07:16] VITALS: BP 136/74; PULSE 85; TEMP 97.5
--- NOTE | 2021-07-02 10:12 | NUR ---
Patient resting in bed. rounded early this am. Plan of care reviewed and pathology results were discussed. Orders obtained. Ng tube removed. Patient thankful. His abdomen is soft & he reports passing flatus. Urostomy cares given & his and patient involved. New urosotmy bag applied. skin intact. Stoma is red & protruding. Midline incisions left open to air. Hema drain to compression, new dressing applied drainaged noted around tube. Patient has concerns about left swollen testicle. called & made aware, no new orders at this time. He will assess tmrw in am. Patient up and ambulated the halls and did very well. Steady on his feet.
--- NOTE | 2021-07-02 11:30 | NUR ---
Patient called. Leaking noted around Hema drain. Drain stripped & new drain spounge and tegaderm applied. Midline incision jules intact. Urostomy appliace intact. Patient up to the bathroom & drained bag independently with verbal couching. He did well. Now standing at the sink brushing teeth, shaving independently. He is tolerated cranberry juice, no nausea. Denies pain at this time.
[2021-07-02 12:00] VITALS: BP 126/75; PULSE 83; TEMP 97.8
--- NOTE | 2021-07-02 13:32 | NUR ---
Maria Esther with hospitlist team rounded. Patient working slowly on clear liquid tray. He was agreeable to take tylenol scheduled & colace. He did not want to take his home med prescriptions. Reports gas pain, denies nausea. He and his have been independently ambulating the halls.
--- NOTE | 2021-07-02 14:09 | NUR ---
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 SW met with patient and reviewed the benefits of HH services. Patient does not feel he needs HH at this time. SW provided Medicare.gov list of HH agencies and also advised that after discharge, patient can follow up with primary care if he changes his mind on needing HH. Patient and verbalized understanding. Discharge Plan: Home
[2021-07-02 15:47] VITALS: BP 132/82; PULSE 92; TEMP 98.3
--- NOTE | 2021-07-02 16:46 | NUR ---
Patient continues to be independent in his room. Draining his own urostomy bag independently. He continue to tolerate clear liquids, taking it slowly. at bedside.
--- NOTE | 2021-07-02 19:05 | NUR ---
RECEIVED CHANGE OF SHIFT REPORT FROM DAY SHIFT RN.
[2021-07-02 19:18] VITALS: BP 109/69; PULSE 78; TEMP 97.9
[2021-07-02 22:54] VITALS: BP 125/68; PULSE 80; TEMP 98.3
--- NOTE | 2021-07-03 02:17 | NUR ---
PT SLEEPING IN BED, LIGHTLY SNORING, RESPIRATIONS UNLABORED. CALL LIGHT WITHIN REACH. UROSTOMY DRAINING DEPENDENTLY. MATT DRAIN ON BULB SUCTION WITH SANGUINEOUS DRAINAGE. MIDLINE ABDOMINAL INCISION OPEN TO AIR, SIENNA INTACT ET EDGES WELL APPROXIMATED. PT DENIES PAIN WHEN AWAKE, REQUESTED THAT SCHEDULED TYLENOL NOT BE GIVEN ET TO BE ALLOWED TO SLEEP.
[2021-07-03 02:59] VITALS: BP 120/68; PULSE 81; TEMP 98.5
[2021-07-03 08:00] VITALS: BP 101/68; PULSE 83; TEMP 98.1
--- NOTE | 2021-07-03 08:00 | NUR ---
PATIENT IS A&O AND AMBULATING IN ROOM INDEPDENTLY. VSS. PATIENT DENIES ANY PAIN OR NAUSEA. ABDOMINAL MIDLINE INCISION IS WELL APPROXIMATED WITH STAPLE CLOSURE. UROSTOMY WITH SENTS X2 DRAINING YELLOW URINE WITH SEDIMENT. FLUSHED BILATERAL STENTS WITH 3CC PER ORDER, FLUSHED EASILY. MATT DRAIN TO COMPRESSION WITH MOD AMOUNTS OF SEROSANG DRAINAGE NOTED. MATT CREATININE SENT TO LAB. ABD IS ROUND, FIRM AND WITH HYPOACTIVE BOWL SOUNDS X4 QUADS. PATIENT REPORTS HE IS PASSING GAS, NO BM YET. PATIENT DIET ADVANCED. AM MEDS GIVEN. HEAD TO TOE ASSESSMENT COMPLETE, SEE CHARTING. RIGHT AND LEFT FORARM IV'S TO INT. PATIENT EDUCATED ABOUT HOW TO ORDER BREAKFAST. AT BEDSIDE. NO OTHER NEEDS AT THIS TIME. CALL LIGHT IN REACH.
--- NOTE | 2021-07-03 10:00 | NUR ---
TALKED WITH DIRECTOR OF FINANCIAL REPORTING AND RIB BENDER ABOUT HOW TO ORDER UROSTOMY SUPPLIES FOR PATIENT BEFORE PENDING DISCHARGE ON THUR. AT BEDSIDE AND AWARE WE ARE WORKING ON THIS.
[2021-07-03 12:07] LABS: CREATININE, serum 0.73 mg/dL (0.72-1.25)
[2021-07-03 12:19] VITALS: BP 126/65; PULSE 73; TEMP 97.8
--- NOTE | 2021-07-03 14:42 | NUR ---
Journalism Intern followed up with patient and his to discuss discharge planning. KAREN Pickett is also present and assisting patient with process to order urostomy supplies. Patient and his are agreeable to try Home Health for nursing and picked [facility]. SW contacted [place] and faxed referral. Home with [facility]
[2021-07-03 16:00] VITALS: BP 115/69; PULSE 92; TEMP 98
--- NOTE | 2021-07-03 19:00 | NUR ---
RECEIVED CHANGE OF SHIFT REPORT FROM DAY SHIFT RN.
[2021-07-03 19:48] VITALS: BP 125/67; PULSE 80; TEMP 98
[2021-07-04 03:59] VITALS: BP 112/63; PULSE 80; TEMP 98.3
--- NOTE | 2021-07-04 05:40 | NUR ---
PATIENT REFUSED SCHEDULED TYLENOL, REPORTS FEELS A LITTLE STIFF IN BODY THIS AM BUT NOT NEEDING TYLENOL. UP IN ROOM INDEPENDENTLY WITH NO REPORTED PROBLEMS OR CONCERNS VOICED.
--- NOTE | 2021-07-04 07:17 | NUR ---
CHANGE OF SHIFT REPORT GIVEN TO DAY SHIFT MARICRUZ JONES.
--- NOTE | 2021-07-04 08:04 | NUR ---
rounded. Plan of care reviewed. Stents removed. Lab called for Hema drain results, Delores director to call Anna to see ETA of results. New dressing applied around Hema drain. Drainage noted. Hema drain to compression. Midline with jules intact. Int. Breakfast ordered, we reviewed importance of protien to promote wound healing. When patietn here we will reviewed ostomy cares. Will monitor.
[2021-07-04 08:12] VITALS: BP 125/85; PULSE 87; TEMP 97.8
--- NOTE | 2021-07-04 11:31 | NUR ---
Patient completed ostomy cares. She did very well. This nurse gave instructions as needed, but she needed minimal assist. Patient continues to drain urostomy bag independently. He tolerated breakfast, scrambled eggs. Denies nausea. Patient had minimal complaints of pain. Will monitor.
[2021-07-04 11:53] VITALS: BP 129/74; PULSE 79; TEMP 98.5
[2021-07-04 16:50] VITALS: BP 128/80; PULSE 82; TEMP 97
--- NOTE | 2021-07-04 19:00 | NUR ---
RECEIVED CHANGE OF SHIFT REPORT FROM DAY SHIFT RN.
[2021-07-04 19:12] VITALS: BP 130/79; PULSE 80; TEMP 97.8
--- NOTE | 2021-07-04 19:13 | NUR ---
Patient sitting up in bed. at bedside. She provided ostomy cares again this evening & did well. I did have petroleum products district supervisor look at stoma with me, patient has mucus present that needs to slough off. Beneath mucus stoma is beefy red & very healthy looking. Patient eating scrammbled eggs for dinner. Hema drain to compression. Dr. Gerardo was notifed of Hema CR results. Midline jules intact. Intx1, Int to [facility] DC. Patient has been independent in room. Suppository was given per request & He did have Results with 3 small BMs today. Bedside report to Denice who will resumes cares.
[2021-07-04 23:14] VITALS: BP 128/73; PULSE 73; TEMP 98
[2021-07-05 03:44] VITALS: BP 128/79; PULSE 97; TEMP 98.2
[2021-07-05 06:39] LABS: CALCIUM 7.9 mg/dL (8.4-10.2); CREATININE, serum 0.71 mg/dL (0.72-1.25); POTASSIUM 3.8 mmol/L (3.5-4.5)
[2021-07-05] MEDS ORDERED: COLACE 100100 MG/CAP PO (07:18)
[2021-07-05] MEDS ORDERED: NORCO 325 MG-51 TAB PO (07:19)
--- NOTE | 2021-07-05 07:21 | NUR ---
CHANGE OF SHIFT REPORT GIVEN TO DAY SHIFT RNARTEMIO
[2021-07-05 07:59] VITALS: BP 120/68; PULSE 99; TEMP 98
--- NOTE | 2021-07-05 11:00 | NUR ---
PT MET CRITERIA FOR DISCHARGE, VSS. PAIN CONTROLLED. IV REMOVED WITH NO COMPLICATIONS, CATHETER INTACT. MATT DRAIN REMOVED SUCCESSFULLY, GAUZE AND FOAM TAPE APPLIED. DISCHARGE INSTRUCTIONS REVIEWED, PT VERBALIZED UNDERSTANDING. PT AWARE OF F/U APPTS AND PRESCRIPTIONS TO DISTILLERY WORKER GENERAL. PT GIVEN OSTOMY SUPPLIES. PT DC TO HOME VIA WC ACCOMPANIED BY SILO TENDER.
--- NOTE | 2021-07-05 11:14 | NUR ---
Automobile Service Station Mechanic contacted [place] at [facility] and faxed discharge orders for nursing. Discharge Plan: Home with [facility]
== END 2021-07-05 10:35 | disposition home or self-care (01) | DRG 654 ==
LOC: INPTSU 06-28 05:22 → SURG 06-28 07:30
PROVIDERS: Physician Assistant; ADMIT Urology
PROC: 07BC0ZZ Excision of Pelvis Lymphatic, Open Approach (ICD-10-PCS; 2021-06-28)
PROC: 0T1807C Bypass Bilateral Ureters to Ileocutaneous with Autologous Tissue Substitute, Open Approach (ICD-10-PCS; 2021-06-28)
PROC: 0TB70ZX Excision of Left Ureter, Open Approach, Diagnostic (ICD-10-PCS; 2021-06-28)
PROC: 0TB60ZX Excision of Right Ureter, Open Approach, Diagnostic (ICD-10-PCS; 2021-06-28)
PROC: 0TBD0ZX Excision of Urethra, Open Approach, Diagnostic (ICD-10-PCS; 2021-06-28)
PROC: 0TTB0ZZ Resection of Bladder, Open Approach (ICD-10-PCS; principal; 2021-06-28 07:30)
DX: C67.9 Malignant neoplasm of bladder, unspecified (principal); E87.1 Hypo-osmolality and hyponatremia; E87.2 Acidosis; K56.7 Ileus, unspecified; I10 Essential (primary) hypertension; R73.9 Hyperglycemia, unspecified; E78.5 Hyperlipidemia, unspecified; D64.9 Anemia, unspecified; T41.45XA Adverse effect of unspecified anesthetic, initial encounter; R11.2 Nausea with vomiting, unspecified; T40.605A Adverse effect of unspecified narcotics, initial encounter; D72.829 Elevated white blood cell count, unspecified
CPT/HCPCS: 99222; 99232-AI; A9284; C1758; C2617; C9113; J0690; J1100; J1650; J2250; J2270; J2405; J2550; J2704; J2795; J3010; J7030; J7120

== ENCOUNTER 2021-07-11 12:25 | Inpatient (IN) | payer MEDICARE, BC ==
[~2021-07-11] VITALS: Ht 175.3 cm; Wt 73.7 kg
[~2021-07-11 12:25] MED LIST changes: +NORCO 325 MG-51 TAB PO; +SENOKOT S 50 MG1 TAB PO
[2021-07-11 13:06] LABS: HEMOGLOBIN 11.7 g/dl (13.5-18.0); MEAN CELL VOLUME 85 fl (80.0-100.0); MEAN CORPUSCULAR HEMOGLOBIN 29 pg (27-31); MEAN CORPUSCULAR HGB CONC 34 g/dl (33.0-37.0); MEAN PLATELET VOLUME 8.3 fl (7.4-10.4); PLATELET COUNT 329 K/mm3 (130-400); RED BLOOD COUNT 4.02 M/mm3 (4.20-5.60); REDCELL DISTRIBUTION WIDTH-CV 13.2 % (11.5-14.5)
[2021-07-11 13:08] LABS: HEMATOCRIT 34.2 % (42.0-52.0)
[2021-07-11 13:24] LABS: ALANINE AMINOTRANSFERASE 33 U/L (0-55); ALBUMIN 3.1 gm/dL (3.4-4.8); ALKALINE PHOSPHATASE 68 U/L (40-150); ANION GAP 13 mmol/L (7-16); AST,SGOT 27 U/L (5-34); BILIRUBIN,TOTAL 0.6 mg/dL (0.2-1.2); BLOOD UREA NITROGEN 9 mg/dL (8-26); CALCIUM 8.6 mg/dL (8.4-10.2); CARBON DIOXIDE 21 mmol/L (23-31); CHLORIDE 95 mmol/L (98-107); CREATININE, serum 0.82 mg/dL (0.72-1.25); GLUCOSE 130 mg/dL (70-99); POTASSIUM 4.6 mmol/L (3.5-4.5); SODIUM 129 mmol/L (136-145); TOTAL PROTEIN 6.3 gm/dL (6.2-8.1)
[2021-07-11 13:30] LABS: TROPONIN-I < 0.010 ng/mL (0.00-0.033)
[2021-07-11 13:45] LABS: BAND 13 % (0-10); LYMPHOCYTE 2 % (20.0-51.0); NEUTROPHILS 81 % (42.0-75.2)
[2021-07-11 13:46] LABS: PLATELET ESTIMATE NORMAL (NORMAL)
[2021-07-11 14:00] LABS: COLLECTION METHOD CLEAN CATCH
[2021-07-11 14:07] LABS: PH 6 (5-8); SQUAMOUS EPITHELIAL None Seen /hpf (0-10); URINE APPEARANCE Hazy (CLEAR/HAZY); URINE BACTERIA None Seen /hpf (NONE SEEN); URINE BILIRUBIN Negative (NEGATIVE); URINE BLOOD 2+ (NEGATIVE); URINE COLOR Yellow (YELLOW); URINE GLUCOSE Negative (NEGATIVE); URINE KETONE Trace (NEGATIVE); URINE LEUKOCYTE ESTERASE 3+ (NEGATIVE); URINE NITRATE Positive (NEGATIVE); URINE PROTEIN(semi-quant) 1+ (NEGATIVE); URINE RBC >50 /hpf (0-2); URINE UROBILINOGEN Negative (NEGATIVE)
[2021-07-11 14:46] LABS: INR 1.3 (0.8-3.0); PROTHROMBIN TIME 13.9 SECONDS (9.7-12.8)
[2021-07-11 14:49] LABS: PARTIAL THROMBOPLASTIN TIME 28.9 SECONDS (26.0-37.0)
--- NOTE | 2021-07-11 17:19 | NUR ---
Vancomycin Initial Dosing Pharmacy Note Ordering provider: Preet Lux MD Indication/duration: SEPSIS, UTI Relevant comorbidities: recent admission LABS: WBC 17.8, TMAX 101.1, SCR 0.82, CRCL ~70 Recommendation: VANCOMYCIN ~17MG/KG Loading dose: 1.5 grams Maintenance dose: 1.25 grams every 12 hours Trough goal: 15-20 ug/mL. TROUGH / @ 1300
--- NOTE | 2021-07-11 17:24 | NUR ---
Patient to room 358 by bed from the ED. with the patient. Patient A&Ox4. VSS. IV CDI. Illiostomy CDI. Nurse oriented the patient to location, room and call light. Patient reports not having an appetite. No further needs expressed. Call light within reach. Bed alarm on
[2021-07-11 17:27] LABS: CALCIUM 7.6 mg/dL (8.4-10.2); CREATININE, serum 0.75 mg/dL (0.72-1.25); POTASSIUM 4.3 mmol/L (3.5-4.5)
[2021-07-11] MEDS ORDERED: TYLENOL 500MG500 MG PO (17:38)
[2021-07-11] MEDS ORDERED: MOTRIN 400400 MG/TAB PO (17:39)
[2021-07-11 19:17] VITALS: BP 133/70; PULSE 105; TEMP 98.8
[2021-07-11 23:11] VITALS: BP 134/63; PULSE 114; TEMP 103.1
--- NOTE | 2021-07-11 23:45 | NUR ---
Patient with temp 103.1, under warm blankets, blankets removed, updated patient, tylenol given per Phylicia LEIVA DAM TENDER ASSISTANT notified.
[2021-07-12] VITALS (8 sets, daily range): BP systolic 89–126; BP diastolic 50–63; PULSE 68–101; TEMP 97.7–102.4
--- NOTE | 2021-07-12 05:39 | NUR ---
Resting quietly, no c/o at this time, T 101.9, tylenol given per MAR, updated on plan of care, telemetry in use, ileostomy draining per gravity to bag, no c/o pain, will continue to monitor.
[2021-07-12 06:22] LABS: BASO % 0.2 % (0.0-2.0); GRAN # 13.9 K/mm3 (1.4-6.5); GRAN % 85.1 % (42.2-75.2); HEMOGLOBIN 10.1 g/dl (13.5-18.0); LYMPH # 0.9 K/mm3 (1.2-3.4); LYMPH % 5.3 % (20.0-51.0); MEAN CELL VOLUME 86 fl (80.0-100.0); MEAN CORPUSCULAR HEMOGLOBIN 29 pg (27-31); MEAN CORPUSCULAR HGB CONC 33 g/dl (33.0-37.0); MEAN PLATELET VOLUME 8.8 fl (7.4-10.4); MONO # 1.4 K/mm3 (0.1-0.6); MONO % 8.6 % (1.7-9.3); PLATELET COUNT 304 K/mm3 (130-400); RED BLOOD COUNT 3.52 M/mm3 (4.20-5.60); REDCELL DISTRIBUTION WIDTH-CV 13.5 % (11.5-14.5)
[2021-07-12 06:29] LABS: HEMATOCRIT 30.2 % (42.0-52.0)
[2021-07-12 06:44] LABS: CALCIUM 7.8 mg/dL (8.4-10.2); CREATININE, serum 1.02 mg/dL (0.72-1.25); POTASSIUM 4.2 mmol/L (3.5-4.5)
--- NOTE | 2021-07-12 08:00 | NUR ---
Patient laying in bed, stating that he feels nauseous. A&Ox4. VSS. IV CDI, fluids infusing. Illeostomy intact, dependent drainage. Denies pain. No further needs expressed. Call light within reach
[2021-07-12 10:11] LABS: COLLECTION METHOD UROSTOMY
[2021-07-12 10:23] LABS: MUCOUS Present (NOT PRESENT); PH 6 (5-8); SQUAMOUS EPITHELIAL None Seen /hpf (0-10); URINE APPEARANCE Hazy (CLEAR/HAZY); URINE BACTERIA None Seen /hpf (NONE SEEN); URINE BILIRUBIN Negative (NEGATIVE); URINE BLOOD 2+ (NEGATIVE); URINE COLOR Yellow (YELLOW); URINE GLUCOSE Negative (NEGATIVE); URINE KETONE Negative (NEGATIVE); URINE LEUKOCYTE ESTERASE 2+ (NEGATIVE); URINE NITRATE Negative (NEGATIVE); URINE PROTEIN(semi-quant) 1+ (NEGATIVE); URINE UROBILINOGEN Negative (NEGATIVE)
--- NOTE | 2021-07-12 11:55 | NUR ---
pressed or blown glass worker met with patient to discuss discharge plan. Patient reports that he lives at home with his Juliana ([phone]) in [place]. Patient reports that he is independent with his activities of daily living and that he does not utilize any DME within the home to assist with mobility. Patient reports he has no oxygen needs at home. PCP is Dr. Hennessy and he utilizes [facility] for persciptions with no cost difficulties. Patient has a DPOA-HC on file listing his Juliana. Patient states he is planning on returning home . Discharge plan: Home with .
[2021-07-12 12:21] LABS: MAGNESIUM 1.5 mg/dL (1.6-2.6)
--- NOTE | 2021-07-12 12:49 | NUR ---
Initial visit attempt; Patient sleeping his nodded when she saw Motor Analyst who left a card informing family of the availability of spiritual care at [facility]via [facility].
--- NOTE | 2021-07-12 17:38 | NUR ---
Patient has been resting most of the shift with family at the bedside. A&Ox4. VSS BP hypotensive and doctors aware. IV CDI, fluids infusing. Denies pain and discomfort. Illeostomy intact. Nursing staff and family encouraging patient increase PO intake. Patient has been nauseous most of the shift. No further needs expressed. Call light within reach
--- NOTE | 2021-07-12 20:00 | NUR ---
Assessment complete. Patient is resting in bed; he is alert and oriented with no complaints of pain. PPN, abx and fluids into peripheral IV's. Ileostomy draining yellow urine; mucus is occassionally present; stoma is red/beefy and not concerning. Mid-abdominal incision is healing, well-approximated and not currently draining. Comfort measures provided and call light within reach.
[2021-07-13 00:26] VITALS: BP 112/64; PULSE 77; TEMP 98
[2021-07-13 03:40] VITALS: BP 131/69; PULSE 92; TEMP 99.1
[2021-07-13 07:37] LABS: BASO % 0.3 % (0.0-2.0); EOS % 0.3 % (0.0-4.0); GRAN # 9.8 K/mm3 (1.4-6.5); GRAN % 83.4 % (42.2-75.2); LYMPH # 0.8 K/mm3 (1.2-3.4); LYMPH % 6.9 % (20.0-51.0); MEAN CELL VOLUME 85 fl (80.0-100.0); MEAN CORPUSCULAR HGB CONC 34 g/dl (33.0-37.0); MEAN PLATELET VOLUME 8.8 fl (7.4-10.4); MONO % 8.5 % (1.7-9.3); PLATELET COUNT 277 K/mm3 (130-400); RED BLOOD COUNT 2.98 M/mm3 (4.20-5.60); REDCELL DISTRIBUTION WIDTH-CV 13.5 % (11.5-14.5)
[2021-07-13 07:43] LABS: HEMATOCRIT 25.4 % (42.0-52.0); HEMOGLOBIN 8.6 g/dl (13.5-18.0); MEAN CORPUSCULAR HEMOGLOBIN 29 pg (27-31)
[2021-07-13 08:01] LABS: CALCIUM 7.6 mg/dL (8.4-10.2); CREATININE, serum 1.26 mg/dL (0.72-1.25); PHOSPHOROUS 2.4 mg/dL (2.3-4.7); POTASSIUM 3.7 mmol/L (3.5-4.5)
[2021-07-13 08:13] VITALS: BP 108/63; PULSE 72; TEMP 98.1
--- NOTE | 2021-07-13 11:13 | NUR ---
Assessment completed, alert/oriented, vital signs stable, denies pain or discomfort, reprorts N/V impoved and actually has an appetite today, still on PPN for nutrtional support, IV abx infusing as well, overall feels improved today, heart RRR, lungs CTA, sitting up at edge of the bed talking with his family, mornimg meds given, tobacco stripper hand also in to discuss intake and plan of care, patient denies other needs at this time, will cotninue to monitor
[2021-07-13 11:56] VITALS: BP 98/62; PULSE 72; TEMP 97.7
[2021-07-13 16:02] VITALS: BP 114/70; PULSE 80; TEMP 97.9
[2021-07-13 21:34] VITALS: BP 126/78; PULSE 80; TEMP 98.3
[2021-07-14] VITALS (7 sets, daily range): BP systolic 114–139; BP diastolic 54–84; PULSE 71–114; TEMP 97.7–98.4
[2021-07-14 07:03] LABS: BASO % 0.4 % (0.0-2.0); EOS # 0.1 K/mm3 (0.0-0.7); EOS % 0.8 % (0.0-4.0); GRAN # 5.1 K/mm3 (1.4-6.5); GRAN % 71.2 % (42.2-75.2); LYMPH # 1.3 K/mm3 (1.2-3.4); LYMPH % 17.9 % (20.0-51.0); MEAN CELL VOLUME 85 fl (80.0-100.0); MEAN CORPUSCULAR HGB CONC 34 g/dl (33.0-37.0); MEAN PLATELET VOLUME 8.7 fl (7.4-10.4); MONO # 0.7 K/mm3 (0.1-0.6); MONO % 9.1 % (1.7-9.3); PLATELET COUNT 282 K/mm3 (130-400); RED BLOOD COUNT 3.02 M/mm3 (4.20-5.60); REDCELL DISTRIBUTION WIDTH-CV 13.6 % (11.5-14.5)
[2021-07-14 07:26] LABS: HEMATOCRIT 25.6 % (42.0-52.0); HEMOGLOBIN 8.6 g/dl (13.5-18.0); MEAN CORPUSCULAR HEMOGLOBIN 28 pg (27-31)
[2021-07-14 07:31] LABS: CREATININE, serum 1.08 mg/dL (0.72-1.25); PHOSPHOROUS 3.1 mg/dL (2.3-4.7); POTASSIUM 3.5 mmol/L (3.5-4.5)
--- NOTE | 2021-07-14 20:12 | NUR ---
PT HAD UNEVENTFUL SHIFT. ALL NEEDS MET.
[2021-07-14] MEDS ORDERED: PEPCID 20MG TAB20 MG PO (23:31)
[2021-07-14] MEDS ORDERED: MEGACE ORAL40 MG/ML PO (23:31)
[2021-07-14] MEDS ORDERED: COMPAZINE 5MG TA5 MG PO (23:34)
[2021-07-15 01:25] VITALS: BP 131/80; PULSE 70; TEMP 98.3
[2021-07-15 04:32] VITALS: BP 131/80; PULSE 75; TEMP 98.4
[2021-07-15 07:26] LABS: CREATININE, serum 1.08 mg/dL (0.72-1.25); MAGNESIUM 1.8 mg/dL (1.6-2.6); PHOSPHOROUS 3.5 mg/dL (2.3-4.7); POTASSIUM 3.4 mmol/L (3.5-4.5)
--- NOTE | 2021-07-15 08:36 | NUR ---
Patient up walking around his room when this RN entered. Patient is very pleasant, A&Ox4 and independent. Patient hopeful that he will go home today. Stoma is moist, pink, and pertruding. Bag is on properaly, patient manages this on his own.
[2021-07-15 08:40] VITALS: BP 136/76; PULSE 71; TEMP 98.2
[2021-07-15 11:33] VITALS: BP 136/83; PULSE 80; TEMP 97.8
[2021-07-15] MEDS ORDERED: PRINCIPEN500 MG PO (11:53)
[2021-07-15] MEDS ORDERED: BACTRIM DS 8001 TAB PO (11:53)
--- NOTE | 2021-07-15 12:40 | NUR ---
Patient being discharged home. This RN went over all discharge instructions w/ the patient and he verbalized understanding. Both IVs were discontinued by this RN, as was telemetry. Patient will be escorted out via wheelchair by staff.
== END 2021-07-15 13:15 | disposition home or self-care (01) | DRG 872 ==
LOC: COL.ER 12:25 → MEDICAL 16:15
PROVIDERS: Emergency Medicine; Physician Assistant; ADMIT Internal Medicine
DX: A41.9 Sepsis, unspecified organism (principal); E87.1 Hypo-osmolality and hyponatremia; N39.0 Urinary tract infection, site not specified; E44.0 Moderate protein-calorie malnutrition; N17.9 Acute kidney failure, unspecified; C67.9 Malignant neoplasm of bladder, unspecified; I08.1 Rheumatic disorders of both mitral and tricuspid valves; D64.9 Anemia, unspecified; Z20.822 Contact with and (suspected) exposure to COVID-19; R00.0 Tachycardia, unspecified; E87.5 Hyperkalemia; I10 Essential (primary) hypertension; E78.5 Hyperlipidemia, unspecified; Z93.6 Other artificial openings of urinary tract status; Z85.46 Personal history of malignant neoplasm of prostate; Z87.891 Personal history of nicotine dependence; Z88.1 Allergy status to other antibiotic agents
CPT/HCPCS: 99223-AI; 99232-AI; 99233-AI; 99239; J0780; J1644; J2405; J2543; J2765; J3370; J3475; J7030; J7040; J7050; Q9967

== ENCOUNTER → 2021-07-20 | Outpatient (CLI) | payer MEDICARE, BC ==
[~2021-07-20] MED LIST changes: +BACTRIM DS 8001 TAB PO; +COMPAZINE 5MG TA5 MG PO; +MEGACE ORAL40 MG/ML PO; +MOTRIN 400400 MG/TAB PO; +PEPCID 20MG TAB20 MG PO; +PRINCIPEN500 MG PO; +TYLENOL 500MG500 MG PO
[2021-07-20 09:12] LABS: ALBUMIN 3.1 gm/dL (3.4-4.8); CREATININE, serum 1.33 mg/dL (0.72-1.25); PHOSPHOROUS 4.1 mg/dL (2.3-4.7); POTASSIUM 4.5 mmol/L (3.5-4.5)
== END ==
LOC: COL.LAB 08:34
PROVIDERS: Internal Medicine
DX: E86.0 Dehydration (principal)

== ENCOUNTER 2021-10-01 09:34 | Outpatient (RCR) | payer MEDICARE, BC ==
[2021-10-01] VITALS (9 sets, daily range): BP systolic 116–149; BP diastolic 67–80; PULSE 69–76; TEMP 97.9–98.4
[~2021-10-01] VITALS: Ht 175.3 cm; Wt 79.5 kg
== END 2021-10-18 | disposition still patient (30) ==
LOC: EUO
DX: C67.5 Malignant neoplasm of bladder neck (principal); D63.0 Anemia in neoplastic disease
CPT/HCPCS: J1644; J7050; P9016

== ENCOUNTER → 2022-02-06 | Outpatient (CLI) | payer MEDICARE, BC ==
[2022-02-06 13:43] LABS: BASO % 0.2 % (0.0-2.0); GRAN # 11.6 K/mm3 (1.4-6.5); GRAN % 86.1 % (42.2-75.2); HEMOGLOBIN 11.8 g/dl (13.5-18.0); LYMPH # 0.7 K/mm3 (1.2-3.4); LYMPH % 4.9 % (20.0-51.0); MEAN CELL VOLUME 87 fl (80.0-100.0); MEAN CORPUSCULAR HEMOGLOBIN 30 pg (27-31); MEAN CORPUSCULAR HGB CONC 35 g/dl (33.0-37.0); MEAN PLATELET VOLUME 8.5 fl (7.4-10.4); MONO # 1.2 K/mm3 (0.1-0.6); MONO % 8.6 % (1.7-9.3); PLATELET COUNT 210 K/mm3 (130-400); REDCELL DISTRIBUTION WIDTH-CV 12.4 % (11.5-14.5)
[2022-02-06 14:07] LABS: BILIRUBIN,TOTAL 0.5 mg/dL (0.2-1.2); C-REACTIVE PROTEIN 7.64 mg/dL (0.00-0.50); CALCIUM 9.2 mg/dL (8.4-10.2); CREATININE, serum 1.12 mg/dL (0.72-1.25); POTASSIUM 4.4 mmol/L (3.5-4.5); TOTAL PROTEIN 7.2 gm/dL (6.2-8.1)
[2022-02-06 14:42] LABS: ERYTHROCYTE SEDIMENTATION RATE 54 mm/hr (0-30)
== END ==
LOC: COL.LAB 12:59
PROVIDERS: Nurse Practitioner Family
DX: N30.01 Acute cystitis with hematuria (principal)

== ENCOUNTER → 2023-01-03 | Outpatient (CLI) | payer MEDICARE, BC ==
[2023-01-03 10:54] LABS: BASO # 0.1 K/mm3 (0.0-0.2); BASO % 0.4 % (0.0-2.0); EOS # 0.1 K/mm3 (0.0-0.7); EOS % 0.4 % (0.0-4.0); GRAN % 80.4 % (42.2-75.2); HEMATOCRIT 40.3 % (42.0-52.0); HEMOGLOBIN 13.7 g/dl (13.5-18.0); LYMPH # 1.2 K/mm3 (1.2-3.4); LYMPH % 11.1 % (20.0-51.0); MEAN CELL VOLUME 86 fl (80.0-100.0); MEAN CORPUSCULAR HEMOGLOBIN 29 pg (27-31); MEAN CORPUSCULAR HGB CONC 34 g/dl (33.0-37.0); MEAN PLATELET VOLUME 8.5 fl (7.4-10.4); MONO # 0.8 K/mm3 (0.1-0.6); MONO % 7.1 % (1.7-9.3); PLATELET COUNT 217 K/mm3 (130-400); RED BLOOD COUNT 4.67 M/mm3 (4.20-5.60); REDCELL DISTRIBUTION WIDTH-CV 14.1 % (11.5-14.5)
[2023-01-03 11:13] LABS: C-REACTIVE PROTEIN 0.18 mg/dL (0.00-0.50)
[2023-01-03 11:16] LABS: ERYTHROCYTE SEDIMENTATION RATE 14 mm/hr (0-30)
[2023-01-03 12:47] LABS: ALBUMIN 4.1 gm/dL (3.4-4.8); BILIRUBIN,TOTAL 0.8 mg/dL (0.2-1.2); CALCIUM 9.8 mg/dL (8.4-10.2); CREATININE, serum 1.12 mg/dL (0.72-1.25); POTASSIUM 4.4 mmol/L (3.5-4.5); TOTAL PROTEIN 7.2 gm/dL (6.2-8.1)
== END ==
LOC: COL.LAB 10:37
DX: R30.0 Dysuria (principal)